=== PATIENT | female | born 1955 | race Two or more races ===

== ENCOUNTER 2020-02-08 09:06 | Outpatient (CLI) | payer OTHER | END 2020-02-08 09:09 | disposition home or self-care (01) | LOC: MAMO-SONO 09:06 | DX: Z12.31 Encounter for screening mammogram for malignant neoplasm of breast (principal); Z87.898 Personal history of other specified conditions; N60.11 Diffuse cystic mastopathy of right breast; N60.12 Diffuse cystic mastopathy of left breast ==

== ENCOUNTER 2022-02-13 11:05 | Outpatient (CLI) | payer OTHER | END 2022-02-13 11:24 | disposition home or self-care (01) | LOC: SONOGRAMA 11:05 | PROVIDERS: ATTEND Specialist | DX: E03.9 Hypothyroidism, unspecified (principal) ==

== ENCOUNTER 2022-05-02 07:22 | Outpatient (CLI) | payer OTHER | END 2022-05-02 07:35 | disposition home or self-care (01) | LOC: NUCLEAR 07:22 | PROVIDERS: ATTEND Specialist | DX: D35.1 Benign neoplasm of parathyroid gland (principal) | CPT/HCPCS: 78071; A9500 ==

== ENCOUNTER 2024-10-29 07:19 | Outpatient (CLI) | payer OTHER | END 2024-10-29 07:30 | disposition home or self-care (01) | LOC: LAB 07:19 | PROVIDERS: ATTEND Orthopaedic Surgery | DX: E55.9 Vitamin D deficiency, unspecified (principal); M85.9 Disorder of bone density and structure, unspecified; E56.1 Deficiency of vitamin K ==